=== PATIENT | male | born 1960 | race Caucasian/White ===

== ENCOUNTER 2019-11-13 13:39 | Emergency (ER) | payer MEDICARE ==
[~2019-11-13] VITALS: Ht 182.9 cm; Wt 105.0 kg
[2019-11-13] MEDS ORDERED: LIDOCAINE 1% Multi-Dose 20 ML VIAL. INJ ONE (16:15)
[2019-11-13 16:25] VITALS: BP 130/73
[2019-11-13] MEDS ORDERED: IV NORMAL SALINE 1000ML BAG 1,000 ML IV ONE (16:30)
[2019-11-13 17:17] LABS: BASO % 1 % (0-3); EOS # 0.1 x10^3/uL (0.0-0.7); EOS % 2 % (0-3); HEMATOCRIT 44.4 % (39.0-53.0); HEMOGLOBIN 15.2 g/dL (13.0-17.5); LYMPH # 1.5 x10^3/uL (1.0-4.8); LYMPH % 27 % (24-48); MEAN CORPUSCULAR HEMOGLOBIN 32 pg (25-35); MEAN CORPUSCULAR HGB CONC 34 g/dL (31-37); MEAN CORPUSCULAR VOLUME 95 fL (79-100); MONO # 0.3 x10^3/uL (0.0-1.1); MONO % 6 % (0-9); NEUT # 3.5 x10^3/uL (1.8-7.7); NEUT % 64 % (31-73); PLATELET COUNT 96 x10^3/uL (140-400); RED BLOOD COUNT 4.68 x10^6/uL (4.30-5.70); WHITE BLOOD COUNT 5.5 x10^3/uL (4.0-11.0)
[2019-11-13 17:23] LABS: CALCIUM 9.3 mg/dL (8.5-10.1); CREATININE 0.9 mg/dL (0.7-1.3); GFR 86.4; POTASSIUM 3.8 mmol/L (3.5-5.1)
[2019-11-13 17:29] LABS: ALBUMIN/GLOBULIN RATIO 1.1 (1.0-1.7); TOTAL PROTEIN 7.8 g/dL (6.4-8.2)
[2019-11-13] MEDS ORDERED: IOHEXOL 300 MG/ML 100ML VIAL. IV ONE (17:45)
[2019-11-13] MEDS ORDERED: CONTRAST GIVEN. MC PRN (18:00)
--- NOTE | 2019-11-13 18:18 | PHYS DOC ---
Past Medical History Past Medical History: Cancer, Other Additional Past Medical Histor: MELANOMA (SERGIO FELTON APRN) Smoking Status: Never Smoker Alcohol Use: None (SERGIO FELTON APRN) General Adult EDM: Chief Complaint: ABSCESS HPI: HPI: Patient is a 59 year old male who presents with here working from [place]. He states that 1 week ago he had a melanoma taken off of his right proximal anterior chest/axillary area. He states that he had a lymph node that was biopsied. He states about 2 days ago he had a fluid-filled pocket that began in the area and was drained by his surgeon in [place]. He states that he was placed on Cipro 2 days ago and started it today. He states that he had been fine until he began having this fluid-filled pocket that is egg sized. He states is slightly painful. There is no redness and he denies any kind of fever. It is soft and fluctuant. There is a healed up area from the incision. He is here today wanting this drained. Patient rates his pain 2 out of 10. (SERGIO FELTON WORKER'S COMPENSATION CLAIMS EXAMINER) Review of Systems: Review of Systems: Constitutional: Denies fever or chills. [] Eyes: Denies change in visual acuity. [] HENT: Denies nasal congestion or sore throat. [] Respiratory: Denies cough or shortness of breath. [] Cardiovascular: Denies chest pain or edema. [] GI: Denies abdominal pain, nausea, vomiting, bloody stools or diarrhea. [] : Denies dysuria. [] Musculoskeletal: Denies back pain or joint pain. Fluid-filled area to the 2-year-old lateral chest and pain. [] Integument: Denies rash. Fluid-filled area to the 2-year-old lateral chest and pain[] Neurologic: Denies headache, focal weakness or sensory changes. [] Endocrine: Denies polyuria or polydipsia. [] Lymphatic: Denies swollen glands. [] Psychiatric: Denies depression or anxiety. [] (SERGIO FELTON APRN) Heart Score: Risk Factors: Risk Factors: DM, Current or recent (<one month) smoker, HTN, HLP, family history of CAD, obesity. Risk Scores: Score 0 - 3: 2.5% MACE over next 6 weeks - Discharge Home Score 4 - 6: 20.3% MACE over next 6 weeks - Admit for Clinical Observation Score 7 - 10: 72.7% MACE over next 6 weeks - Early Invasive Strategies (SERGIO FELTON APRN) Current Medications: Current Medications Medications (Trade) Dose Ordered Sig/Carmen Start Time Stop Time Status Last Admin Dose Admin Info (CONTRAST GIVEN -- Rx MONITORING) 1 each PRN DAILY PRN 11/13/19 18:00 11/15/19 17:59 Iohexol (Omnipaque 300 Mg/ml) 75 ml 1X ONCE 11/13/19 17:45 11/13/19 17:46 DC 11/13/19 17:54 75 ML Lidocaine HCl (Lidocaine 1% 20ml Vial) 20 ml 1X ONCE 11/13/19 16:15 11/13/19 16:16 DC Sodium Chloride 1,000 ml @ 1,000 mls/hr 1X ONCE 11/13/19 16:30 11/13/19 17:29 DC 11/13/19 17:00 1,000 MLS/HR (SERGIO FELTON APRN) Allergies: Allergies: Allergies Coded Allergies Type Severity Reaction Last Updated Verified adhesive tape Allergy Intermediate 11/13/19 Yes (SERGIO FELTON APRN) Physical Exam: PE: Constitutional: Well developed, well nourished, no acute distress, non-toxic appearance. [] HENT: Normocephalic, atraumatic, bilateral external ears normal, oropharynx moist, no oral exudates, nose normal. [] Eyes: PERRLA, EOMI, conjunctiva normal, no discharge. [] Neck: Normal range of motion, no tenderness, supple, no stridor. [] Cardiovascular:Heart rate regular rhythm, no murmur [] Lungs & Thorax: Bilateral breath sounds clear to auscultation [] Abdomen: Bowel sounds normal, soft, no tenderness, no masses, no pulsatile masses. [] Skin: Warm, dry, no erythema, no rash. Fluid-filled flucuent egg sized area to the anterior lateral chest. Healed up incision. [] Back: No tenderness, no CVA tenderness. [] Extremities: No tenderness, no cyanosis, no clubbing, ROM intact, no edema. [] Neurologic: Alert and oriented X 3, normal motor function, normal sensory function, no focal deficits noted. [] Psychologic: Affect normal, judgement normal, mood normal. [] (SERGIO FELTON APRN) PE: Large fluid-filled collection in the right axilla (JOYCE LOPEZ MD) Current Patient Data: Labs: Laboratory Tests Test 11/13/19 17:05 White Blood Count 5.5 x10^3/uL (4.0-11.0) Red Blood Count 4.68 x10^6/uL (4.30-5.70) Hemoglobin 15.2 g/dL (13.0-17.5) Hematocrit 44.4 % (39.0-53.0) Mean Corpuscular Volume 95 fL (79-100) Mean Corpuscular Hemoglobin 32 pg (25-35) Mean Corpuscular Hemoglobin Concent 34 g/dL (31-37) Red Cell Distribution Width 13.0 % (11.5-14.5) Platelet Count 96 x10^3/uL (140-400) L Neutrophils (%) (Auto) 64 % (31-73) Lymphocytes (%) (Auto) 27 % (24-48) Monocytes (%) (Auto) 6 % (0-9) Eosinophils (%) (Auto) 2 % (0-3) Basophils (%) (Auto) 1 % (0-3) Neutrophils # (Auto) 3.5 x10^3/uL (1.8-7.7) Lymphocytes # (Auto) 1.5 x10^3/uL (1.0-4.8) Monocytes # (Auto) 0.3 x10^3/uL (0.0-1.1) Eosinophils # (Auto) 0.1 x10^3/uL (0.0-0.7) Basophils # (Auto) 0.0 x10^3/uL (0.0-0.2) Sodium Level 139 mmol/L (136-145) Potassium Level 3.8 mmol/L (3.5-5.1) Chloride Level 104 mmol/L (98-107) Carbon Dioxide Level 32 mmol/L (21-32) Anion Gap 3 (6-14) L Blood Urea Nitrogen 19 mg/dL (8-26) Creatinine 0.9 mg/dL (0.7-1.3) Estimated GFR (Cockcroft-Gault) 86.4 BUN/Creatinine Ratio 21 (6-20) H Glucose Level 90 mg/dL (70-99) Calcium Level 9.3 mg/dL (8.5-10.1) Total Bilirubin 1.0 mg/dL (0.2-1.0) Aspartate Amino Transferase (AST) 24 U/L (15-37) Alanine Aminotransferase (ALT) 27 U/L (16-63) Alkaline Phosphatase 42 U/L (46-116) L Total Protein 7.8 g/dL (6.4-8.2) Albumin 4.0 g/dL (3.4-5.0) Albumin/Globulin Ratio 1.1 (1.0-1.7) Laboratory Tests 11/13/19 17:05 Laboratory Tests 11/13/19 17:05 Vital Signs: Vital Signs Date Time Temp Pulse Resp B/P (MAP) Pulse Ox O2 Delivery O2 Flow Rate FiO2 11/13/19 16:25 98.1 87 18 130/73 (92) 99 Room Air 98.1 (SERGIO FELTON APRN) EKG: EKG: [] (SERGIO FELTON APRN) Radiology/Procedures: Radiology/Procedures: [] Impression: [facility] [address] [place] [address] IMAGING REPORT Signed PATIENT: AILIN JAFFE ACCOUNT: [id number] : 1960 LOCATION: ER AGE: 59 SEX: M EXAM STATUS: REG ER ORD. PHYSICIAN: SERGIO FELTON APRN REASON: lump to right proximal anterior axillary line PROCEDURE: CT CHEST W/CONTRAST EXAM: CT Chest with IV contrast CLINICAL HISTORY: lump to right proximal anterior axillary line COMPARISON: None. TECHNIQUE: CT of the chest following the administration of intravenous contrast. Axial, coronal and sagittal reformatted images were generated. ---PQRS compliance statement - One or more of the following individualized dose reduction techniques were utilized for this study: 1. Automated exposure control 2. Adjustment of the mA and/or kV according to patient size 3. Use of iterative reconstruction technique--- FINDINGS: CHEST: Heart is not enlarged. No pericardial effusion. Coronary artery calcifications are seen. No axillary lymphadenopathy. In the region of the right axilla there is a collection measuring 8.7 x 7.2 x 7 cm, approximately 10 Hounsfield units, consistent with cystic lesion. No definite high density or solid component is identified. No associated layering or blush-like appearance of contrast material. This may represent seroma. No mediastinal or hilar lymphadenopathy. No pleural effusion or pneumothorax. Visualized Upper abdomen: Liver is mildly nodular in contour with mild enlargement of the left hepatic lobe, cirrhosis is a consideration. Bones: No aggressive osseous lesion is seen. IMPRESSION: 1. Right axillary cystic structure is nonspecific but may represent a seroma or lymphocele measuring 8.7 cm. No high density component to suggest hematoma. No evidence for associated contrast extravasation. Of note a hyperacute hemorrhage may be homogenously hypodense 2. Enlarged left hepatic lobe and mild nodularity of the liver likely cirrhosis. 3. Coronary artery calcifications are seen. Electronically signed by: Cj Owens MD (11/13/2019 6:30 PM) [facility] DICTATED and SIGNED BY: CJ OWENS MD DATE: 11/13/191829 (SERGIO FELTON APRN) Radiology/Procedures: After informed consent obtained, the right axilla was prepped with Betadine and 1% lidocaine with epi was used to anesthetize the area then an 18-gauge needle took to a 60 cc syringe was used to aspirate approximately 100 cc of non-cloudy serosanguineous fluid, no complications, patient tolerated well Impression: I have personally interviewed and examined patient. All charts, labs and imaging studies were reviewed. I agreed with the PA/STERILE PROC TECH's findings, exam and plan of care (JOYCE LOPEZ MD) Course & Med Decision Making: Course & Med Decision Making Pertinent Labs and Imaging studies reviewed. (See chart for details) Alert and oriented x4. Ambulatory with a steady gait. He has full range of motion of his right arm. Skin pink warm and dry. Vital signs within normal limits. I did have Dr. Prado going to take a look at this. She is having a CT the chest to look for a possible seroma. []IMPRESSION: 1. Right axillary cystic structure is nonspecific but may represent a seroma or lymphocele measuring 8.7 cm. No high density component to suggest hematoma. No evidence for associated contrast extravasation. Of note a hyperacute hemorrhage may be homogenously hypodense 2. Enlarged left hepatic lobe and mild nodularity of the liver likely cirrhosis. 3. Coronary artery calcifications are seen. Patient to follow-up with the surgeon that did the biopsy. I have spoken to Dr Prado concerning this and she agrees to not open and drain this and he needs to follow up with the surgeon. Patient became very upset and stated " I will go out in the parking lot and cut it myself with any X-Acto knife and I will come back in and you also may help". I have spoken to Dr Mata he states he will go speak with the patient. (SERGIO FELTON APRN) Dragon Disclaimer: Dragon Disclaimer: This electronic medical record was generated, in whole or in part, using a voice recognition dictation system. (SERGIO FELTON APRN) Departure Departure Impression: Primary Impression: Seroma after procedure Disposition: HOME, SELF-CARE Condition: STABLE Referrals: NO PCP (PCP) Patient Instructions: Medical Screening Exam Additional Instructions: Continue taking the Cipro antibiotic. Follow-up with your surgeon as soon as possible. Justicifation of Admission Dx: Justifications for Admission: Justification of Admission Dx: N/A (SERGIO FELTON APRN) Justification of Admission Dx: N/A (JOYCE LOPEZ MD) SERGIO FELTON APRN Nov 13, 2019 18:18 JOYCE LOPEZ MD Nov 13, 2019 19:41
--- NOTE | 2019-11-13 18:32 | RAD ---
EXAM: CT Chest with IV contrast CLINICAL HISTORY: lump to right proximal anterior axillary line COMPARISON: None. TECHNIQUE: CT of the chest following the administration of intravenous contrast. Axial, coronal and sagittal reformatted images were generated. ---PQRS compliance statement - One or more of the following individualized dose reduction techniques were utilized for this study: 1. Automated exposure control 2. Adjustment of the mA and/or kV according to patient size 3. Use of iterative reconstruction technique--- FINDINGS: CHEST: Heart is not enlarged. No pericardial effusion. Coronary artery calcifications are seen. No axillary lymphadenopathy. In the region of the right axilla there is a collection measuring 8.7 x 7.2 x 7 cm, approximately 10 Hounsfield units, consistent with cystic lesion. No definite high density or solid component is identified. No associated layering or blush-like appearance of contrast material. This may represent seroma. No mediastinal or hilar lymphadenopathy. No pleural effusion or pneumothorax. Visualized Upper abdomen: Liver is mildly nodular in contour with mild enlargement of the left hepatic lobe, cirrhosis is a consideration. Bones: No aggressive osseous lesion is seen. IMPRESSION: 1. Right axillary cystic structure is nonspecific but may represent a seroma or lymphocele measuring 8.7 cm. No high density component to suggest hematoma. No evidence for associated contrast extravasation. Of note a hyperacute hemorrhage may be homogenously hypodense 2. Enlarged left hepatic lobe and mild nodularity of the liver likely cirrhosis. 3. Coronary artery calcifications are seen. Electronically signed by: Cj Mckenna MD (11/13/2019 6:30 PM) [facility]
== END 2019-11-13 19:51 | disposition home or self-care (01) ==
LOC: ER 13:39
DX: L02.411 Cutaneous abscess of right axilla (principal); Z88.8 Allergy status to other drugs, medicaments and biological substances
CPT/HCPCS: 10140; 36415; 71260; 80053; 85025; 96360; 99285; J7030; Q9967; 10060

== ENCOUNTER 2019-11-17 12:13 | Emergency (ER) | payer MEDICARE ==
[~2019-11-17] VITALS: Ht 182.9 cm; Wt 97.9 kg
[2019-11-17 12:23] VITALS: BP 147/71
[2019-11-17] MEDS ORDERED: LIDOCAINE 1%/EPI 1:100,000 20 ML VIAL. SQ ONE (12:45)
--- NOTE | 2019-11-17 13:59 | PHYS DOC ---
Past Medical History Past Medical History: Cancer, Other Additional Past Medical Histor: MELANOMA Smoking Status: Never Smoker Alcohol Use: None General Adult EDM: Chief Complaint: ABSCESS HPI: HPI: Patient is a 59 year old male who presents to the emergency department with request for fluid to be drained from her right axilla. Patient states he was seen here 4 days ago and he had fluid drained from a seroma in his right axilla. Patient reported having a recent lymph node biopsy in the affected area after having some moles removed from his back. He reports his surgeon is the [facility] [place] and he is to return there tomorrow. He denies any fever, numbness, tingling, redness, warmth, drainage, or bleeding from the site. He currently rates his pain a 7 out of 10 on the pain scale he states the only thing that helps to relieve the pain is when the fluid is drained, the pain is worse with the area is touched. Review of Systems: Review of Systems: Constitutional: Denies fever or chills. [] Musculoskeletal: Denies joint pain. [] Integument: See HPI Neurologic: Denies headache, focal weakness or sensory changes. [] Lymphatic: See HPI Complete ROS is negative unless otherwise stated in the HPI. Heart Score: Risk Factors: Risk Factors: DM, Current or recent (<one month) smoker, HTN, HLP, family history of CAD, obesity. Risk Scores: Score 0 - 3: 2.5% MACE over next 6 weeks - Discharge Home Score 4 - 6: 20.3% MACE over next 6 weeks - Admit for Clinical Observation Score 7 - 10: 72.7% MACE over next 6 weeks - Early Invasive Strategies Current Medications: Current Medications Medications (Trade) Dose Ordered Sig/[facility] Start Time Stop Time Status Last Admin Dose Admin Lidocaine/ Epinephrine (LIDOCAINE 1%-EPI 1:100,000 Multi-Dose) 20 ml 1X ONCE 11/17/19 12:45 11/17/19 12:46 DC 11/17/19 12:45 20 ML Allergies: Allergies: Allergies Coded Allergies Type Severity Reaction Last Updated Verified adhesive tape Allergy Intermediate 11/13/19 Yes Physical Exam: PE: Constitutional: Well developed, well nourished, no acute distress, non-toxic appearance. [] HENT: Normocephalic, atraumatic, bilateral external ears normal, nose normal. [] Eyes: PERRLA, EOMI, conjunctiva normal, no discharge. [] Neck: Normal range of motion, no stridor. [] Cardiovascular:Heart rate regular rhythm Lungs & Thorax: Respirations even and unlabored, no retractions, no respiratory distress Skin: Warm, dry, no rash; 10 cm diameter swollen fluctuant pocket of fluid noted to the anterior right axilla without surrounding warmth or erythema consistent with previous seroma. [] Extremities: No cyanosis, ROM intact, no edema. [] Neurologic: Alert and oriented X 3, no focal deficits noted. [] Psychologic: Affect normal, judgement normal, mood normal. [] Current Patient Data: Vital Signs: Vital Signs Date Time Temp Pulse Resp B/P (MAP) Pulse Ox O2 Delivery O2 Flow Rate FiO2 11/17/19 12:23 97.9 52 18 147/71 (96) 99 Room Air 97.9 EKG: EKG: [] Radiology/Procedures: Radiology/Procedures: The affected area of the right axilla was cleansed with Betadine and 1% lidocaine with epinephrine was injected into the site. An 18-gauge needle attached to a 60 mils syringe was then inserted into the site. Approximately 120 mls of serous fluid was drained from the site. The patient reported relief of his discomfort following the drainage of the seroma. Minimal blood loss, no complications. Patient tolerated procedure well. [] Course & Med Decision Making: Course & Med Decision Making Pertinent Labs and Imaging studies reviewed. (See chart for details) [] Dragon Disclaimer: Dragon Disclaimer: This electronic medical record was generated, in whole or in part, using a voice recognition dictation system. Departure Departure Impression: Primary Impression: Seroma after procedure Disposition: 01 HOME, SELF-CARE Condition: STABLE Referrals: NO PCP (PCP) Patient Instructions: Surgical Site Infection Additional Instructions: WATCH FOR SIGNS OF SURGICAL SITE INFECTION. FOLLOW UP WITH YOUR SURGEON THIS WEEK. RETURN TO THE ER IF SYMPTOMS WORSEN OR FEVER DEVELOPS. Justicifation of Admission Dx: Justifications for Admission: Justification of Admission Dx: N/A KATHIA HAWKINS APRN Nov 17, 2019 13:58
== END 2019-11-17 14:00 | disposition home or self-care (01) ==
LOC: ER 12:13
DX: L76.34 Postprocedural seroma of skin and subcutaneous tissue following other procedure (principal); Z85.9 Personal history of malignant neoplasm, unspecified; Z98.890 Other specified postprocedural states; Z88.8 Allergy status to other drugs, medicaments and biological substances
CPT/HCPCS: 10140; 99284; J3490